=== PATIENT | male | born 1950 | race Caucasian/White ===

== ENCOUNTER 2016-10-30 04:23 | Emergency (ER) | payer SELFPAY ==
[~2016-10-30] VITALS: Ht 170.2 cm; Wt 72.7 kg
[2016-10-30 04:25] VITALS: BP 146/86
== END 2016-10-30 05:00 | disposition left against medical advice (07) ==
LOC: ER 04:56
DX: R51 Headache (principal); Z53.21 Procedure and treatment not carried out due to patient leaving prior to being seen by health care provider